=== PATIENT | female | born 1985 | race African-American/Black ===

== ENCOUNTER 2017-01-26 09:46 | Inpatient (IN) | payer BC ==
--- NOTE | ~2017-01-26 | DS ---
Discharge Summary [place] [id number] [facility] [place] [place]. [address] NAME: WENDY FIGUEREDO : [birth year] STATUS : ADM IN [facility]#: [id number] AGE: 32 ADM/REG DATE : 01/26/17 MR#: [id number] REPORT SERV DATE: 01/27/17 DICTATED BY: Radha GUTIERREZ DATE: 01/27/17 REPORT STATUS : Draft TRANSCRIBED BY: MODL DATE: 01/27/17 ADMISSION DATE: 01/26/2017 DISCHARGE DATE: 01/27/2017 DIAGNOSES AT DISCHARGE: Hyperthyroidism, cocaine use. CONSULTS: None. PROCEDURES: None. BRIEF SUMMARY: A 32-year-old female patient was admitted with anxiety, sweating, and tachycardia with hyperthyroid, laboratory concerning for underlying hyperthyroid state, started on a combination of Tapazole and propranolol, and observed overnight. The patient was hemodynamically stable with a resting heart rate in the 90s. The patient also admits to being on daily cocaine for roughly the last three to four weeks. The patient has been stringently counseled regarding the potential fatal use of cocaine particularly while hyperthyroid. The patient is felt stable to discharge home on a combination of Tapazole and propranolol. She will follow up with trial judge Dr. Gaye Krause, in approximately one to two weeks. DICTATED BY: Radha Gutierrez M.D. [facility] Radha Gutierrez M.D. / [id number] CC: Clara Shore M.D.
--- NOTE | ~2017-01-26 | HP ---
History And Physical [place] [id number] [facility] [place]. [address] NAME: WENDY FIGUEREDO : [birth year] STATUS : ADM IN [facility]#: [id number] AGE: 32 ADM/REG DATE : 01/26/17 MR#: [id number] REPORT SERV DATE: 01/26/17 DICTATED BY: FILOMENA FROST DATE: 01/26/17 REPORT STATUS : Draft TRANSCRIBED BY: MODL DATE: 01/26/17 DATE OF ADMISSION: 01/26/2017 CHIEF COMPLAINT: Sweating, palpitation, anxiety, and not feeling well intermittently for couple of weeks, but getting progressively worse for a few days. HISTORY OF PRESENT ILLNESS: This is a very pleasant 32-year-old female who has had no significant past medical history except for hypertension and chronic back pain, who has been presenting today to [facility] Emergency Room with complaints that started mostly, she said, couple of weeks ago with intermittent palpitation some weakness, some agitation, anxiety, and not feeling generalized well. For three to four days, however, she feels this palpitation. She feels that her pressure may be up. She has feeling of sweats, but intermittent nausea. She has not had though experienced any fevers or any vomiting, and as a result today, her heart rate got so control, and she had intermittent panic attacks, so as a result, she came to [facility] emergency room. She has been evaluated in the ER. She has been found in sinus tach with a heart rate on arrival was about 140-150 sinus tach, and she has been given some propranolol, her heart rate improved some, but some thyroid function test has been performed in the emergency room. Her TSH was less than 0.005, her free T4 was 433 and obviously T3 uptake was 47. The patient did not have any chest pain or shortness of breath. Again, she denies any fever, vomiting, some nausea, but obviously palpitation, anxiety, and sweats. No abdominal pain. No PND or orthopnea. No hematemesis. No melena. No hematochezia. She has not had any increased urinary frequency or urgency. No other complaints. The patient has been evaluated in the emergency room and after initial evaluation, Hospitalist Service has been contacted for admission, further evaluation, and treatment. PAST MEDICAL HISTORY: Significant for chronic back pain and hypertension. PAST SURGICAL HISTORY: None. SOCIAL HISTORY: She is a smoker, 5-8 cigarettes a day for 20 years. She says she does not smoke. She does not take IV drugs. She used marijuana intermittently. FAMILY HISTORY: Interestingly, significant for thyroid disorder. She does not know, she thinks her sister has "high thyroid." Very important, the patient has not been on any Synthroid nor she has had any history of thyroid disease. REVIEW OF SYSTEMS: A 14-point review of systems has been obtained and pertinent positive has been listed into the history of present illness, otherwise, negative except those underlying above. PHYSICAL EXAMINATION: VITAL SIGNS: The patient is afebrile. Blood pressure is 118/69, heart rate currently after receiving the labetalol 108-110 sinus tach, respiratory rate was 16, saturating 99% on room air. GENERAL: Very pleasant, somewhat anxious lady in no acute distress. She is alert and History And Physical [address] [address] NAME: WENDY FIGUEREDO : [birth year] STATUS : ADM IN [facility]#: [id number] AGE: 32 ADM/REG DATE : 01/26/17 MR#: [id number] REPORT SERV DATE: 01/26/17 DICTATED BY: FILOMENA FROST DATE: 01/26/17 REPORT STATUS : Draft TRANSCRIBED BY: AVERY DATE: 01/26/17 oriented x3. She follows all her commands appropriately. HEENT: Pupils equal, round, reactive to light. Extraocular movements intact. NECK: No JVD. No lymphadenopathy. I do not appreciate any goiter on palpation. CARDIOVASCULAR: She has regular rate and tachycardic. S1, S2 positive. No S3, no S4. No murmurs, rubs, or gallops appreciated. ABDOMEN: Soft with positive bowel sounds. Nontender. No guarding. No rebound. EXTREMITIES: No clubbing, cyanosis, or edema. NEUROLOGIC: She is alert and oriented x3. She is nonfocal. She follows all commands appropriately. LABORATORY DATA: Labs from today include sodium 143, potassium 3.8, chloride 109, CO2 of 24, BUN 11, creatinine 0.55, glucose is 79, magnesium is 1.8. Her troponin is less than 0.02. T3 uptake 47, TSH less than 0.005, and free T4 is 433. Her serum test has been negative and her white count is 8.5, hemoglobin 13.5, hematocrit 39.6, platelets 290. INR is 1.1. Her chest x-ray, portable, performed in the emergency room showed no acute cardiopulmonary abnormalities that could be appreciated and EKG shows sinus tachycardia. ASSESSMENT AND PLAN: This is a very pleasant 32-year-old female with. 1. Hyperthyroidism, newly diagnosed. 2. Hypertension. 3. Mild anxiety, secondary to above. I am going to put patient in MICU, start her on propranolol three times a day as blood pressure might tolerate, propranolol will help the patient's symptoms. I am going to start her on Tapazole 10 mg p.o. b.i.d. for three days and 10 mg p.o. daily; also super saturating potassium iodide, 5 drops three times a day probably about one week or so. I am going to check thyroid stimulating immunoglobulin and though I do not feel any goiter, I am going to go ahead and check stat thyroid ultrasound since the patient might have thyroiditis due to description of a long symptoms. We also check a serum drug level and urine drug screen and check a UA and urine culture. Provide vigorous IV hydration. She receive a dose of steroids in the emergency room, we will hold steroids currently and see how she responds with propranolol and Tapazole and provide supportive treatment as well. We will check liver function test as well and provide GI and DVT prophylaxis. The patient would need an outpatient followup with an lens grinder and polisher in few weeks. I have discussed personally with Dr. Gaye Krause, Endocrinology, she would be happy to follow the patient as an outpatient. That has been discussed extensively with the patient as well, all the questions have been answered in full. Further workup and recommendation pending above. It is worthwhile to note that the patient is going to be followed by Hospitalist Service. CF/MODL Filomena Frost M.D. History And Physical [address] [address] NAME: WENDY FIGUEREDO : 81 STATUS : ADM IN PAT#: [id number] AGE: 32 ADM/REG DATE : 01/26/17 MR#: [id number] REPORT SERV DATE: 01/26/17 DICTATED BY: FILOMENA FROST DATE: 01/26/17 REPORT STATUS : Draft TRANSCRIBED BY: AVERY DATE: 01/26/17 / [id number] CC: Clara Shore M.D.
[2017-01-26 09:24] LABS: BASOPHILS 0.2 %; BASOPHILS ABSOLUTE 0.02 10/3/uL (0.0-0.16); EOSINOPHILS 0.5 %; EOSINOPHILS ABSOLUTE 0.04 10/3/uL (0.0-0.53); ER CBC TAT 0 Hrs 05 Mins; HEMATOCRIT 39.6 % (36.0-48.0); HEMOGLOBIN 13.5 g/dL (12.0-16.0); IMMATURE GRANULOCYTES 0.1 %; IMMATURE GRANULOCYTES ABSOLUTE 0.01 10/3/uL (0.0-0.11); LYMPHOCYTES 23.3 %; LYMPHOCYTES ABSOLUTE 1.98 10/3/uL (0.67-4.30); MEAN CORPUS HGB CONC 34.1 g/dL (32.0-36.0); MEAN CORPUSCULAR HEMOGLOB 33.4 pg (26.0-34.0); MONOCYTES 7.1 %; NEUTROPHILS 68.8 %; NEUTROPHILS ABSOLUTE 5.86 10/3/uL (2.02-8.40); PLATELET COUNT 290 10/3/uL (150-400); RBC DISTRIBUTION WIDTH 12.2 % (12.0-16.0); RED CELL COUNT 4.04 10/6/uL (4.0-5.6); WHITE BLOOD CELLS 8.5 10/3/uL (4.5-10.5)
[2017-01-26 09:26] LABS: MANUAL DIFF NO %
[2017-01-26 09:31] LABS: INTERNATIONAL NORMAL RATI 1.1 UNITS (-); PARTIAL THROMBO TIME 26.5 SEC (22.5-37.2); PROTIME (NOT ORD) 13.7 SEC (12.0-14.5)
[2017-01-26 09:41] LABS: BUN (BLOOD UREA NITROGEN) 11 MG/DL (6-23); CALCIUM, SERUM 9.8 MG/DL (8.5-10.4); CHEST PAIN PROFILE TAT 0 Hrs 22 Mins; CHLORIDE, SERUM 109 MMOL/L (96-112); CO2 (CARBON DIOXIDE) 24 MMOL/L (24-34); CREATININE 0.55 MG/DL (0.55-1.02); GFR AFRICAN AMERICAN 142 ML/MIN (>=60); GFR NON AFRICAN AMERICAN 122 ML/MIN (>=60); POTASSIUM, SERUM 3.8 MMOL/L (3.5-5.3); SODIUM, SERUM 143 MMOL/L (135-148); TROPONIN I 0.02 NG/ML (<0.05)
[2017-01-26 09:45] LABS: GLUCOSE, SERUM 79 MG/DL (60-99)
[2017-01-26 10:34] LABS: ULTRASENSITIVE TSH < 0.005 MCIU/ML (0.358-3.740)
[2017-01-26 11:14] LABS: FREE T4 4.33 NG/DL (0.76-1.46); T3 UPTAKE 47 % (30-45)
[2017-01-26] MEDS ORDERED: PRIN10 PO (11:59)
[2017-01-26] MEDS ORDERED: ADVIL PO (12:00)
[2017-01-26] MEDS ORDERED: ACET500CAP PO (12:00)
[2017-01-26] MEDS ORDERED: BEN25 PO (12:01)
[2017-01-26] MEDS ORDERED: MEDROXYPROGESTERONE IM (12:02)
[2017-01-26 14:25] LABS: AMPHETAMINES (NOT ORD) NEG (NEG); BARBITURATES (NOT ORDERED NEG (NEG); BENZODIAZEPINES (NOT ORD) NEG (NEG); CANNABINOIDS (THC) POS (NEG); COCAINE (NOT ORDERED) POS (NEG); OPIATES NEG (NEG); PHENCYCLIDINE(PCP) NEG (NEG)
[2017-01-26 14:26] LABS: TRICYCLICS NEG (NEG)
[2017-01-26 15:32] LABS: INTERNATIONAL NORMAL RATI 1.1 UNITS (-); PARTIAL THROMBO TIME 26.6 SEC (22.5-37.2); PROTIME (NOT ORD) 14.3 SEC (12.0-14.5)
[2017-01-26 15:49] LABS: ASCORBIC ACID (UR NOT ORDER) NEG (NEG); BILIRUBIN, URINE NEGATIVE (NEG); KETONE, URINE 20 MG/DL (NEG); LEUKOCYTE ESTERASE(NOT OR NEG (NEG); WBC (NOT ORDERED) (RFLEX) 1 (0-5)
[2017-01-26 16:10] LABS: ACETAMINOPHEN LEVEL (TYLENOL) < 2.0 MCG/ML (10.0-20.0); ALCOHOL < 10 MG/DL (0); ALKALINE PHOSPHATASE 57 U/L (45-117); DIRECT BILIRUBIN 0.1 MG/DL (0.0-0.4); FOLATE 21.3 NG/ML (>5.2); FREE T4 3.39 NG/DL (0.76-1.46); INDIRECT BILIRUBIN(NOT ORDER) 0.4 MG/DL (0.1-0.9); PHOSPHORUS, SERUM 2.9 MG/DL (2.5-4.5); SALICYLATE 2.4 MG/DL (-); SGOT(AST) 28 U/L (5-40); SGPT(ALT) 38 U/L (5-65); TOTAL BILIRUBIN 0.5 MG/DL (0-1.2); TOTAL PROTEIN 6.2 G/DL (6.0-8.5); TROPONIN I 0.03 NG/ML (<0.05); ULTRASENSITIVE TSH < 0.005 MCIU/ML (0.358-3.740)
[2017-01-27 04:30] LABS: BASOPHILS 0.1 %; BASOPHILS ABSOLUTE 0.01 10/3/uL (0.0-0.16); EOSINOPHILS 0 %; HEMOGLOBIN 10.9 g/dL (12.0-16.0); IMMATURE GRANULOCYTES 0.3 %; IMMATURE GRANULOCYTES ABSOLUTE 0.04 10/3/uL (0.0-0.11); LYMPHOCYTES 11.8 %; LYMPHOCYTES ABSOLUTE 1.86 10/3/uL (0.67-4.30); MANUAL DIFF NO %; MEAN CORPUS HGB CONC 34.1 g/dL (32.0-36.0); MEAN CORPUSCULAR HEMOGLOB 33.6 pg (26.0-34.0); MEAN CORPUSCULAR VOLUME 98.8 fL (80-100); MEAN PLATELET VOLUME 9.1 fL (9.2-13.0); MONOCYTES 8.1 %; MONOCYTES ABSOLUTE 1.28 10/3/uL (0.21-1.20); NEUTROPHILS 79.7 %; NEUTROPHILS ABSOLUTE 12.54 10/3/uL (2.02-8.40); PLATELET COUNT 275 10/3/uL (150-400); RBC DISTRIBUTION WIDTH 12.3 % (12.0-16.0); RED CELL COUNT 3.24 10/6/uL (4.0-5.6); WHITE BLOOD CELLS 15.7 10/3/uL (4.5-10.5)
[2017-01-27 04:39] LABS: ALBUMIN 3.1 G/DL (3.5-5.0); ALKALINE PHOSPHATASE 58 U/L (45-117); BUN (BLOOD UREA NITROGEN) 10 MG/DL (6-23); CALCIUM, SERUM 9.3 MG/DL (8.5-10.4); CHLORIDE, SERUM 114 MMOL/L (96-112); CO2 (CARBON DIOXIDE) 21 MMOL/L (24-34); CREATININE 0.43 MG/DL (0.55-1.02); GFR AFRICAN AMERICAN 154 ML/MIN (>=60); GFR NON AFRICAN AMERICAN 133 ML/MIN (>=60); GLUCOSE, SERUM 133 MG/DL (60-99); POTASSIUM, SERUM 3.8 MMOL/L (3.5-5.3); SGOT(AST) 19 U/L (5-40); SGPT(ALT) 37 U/L (5-65); SODIUM, SERUM 144 MMOL/L (135-148); TOTAL BILIRUBIN 0.4 MG/DL (0-1.2); TOTAL PROTEIN 6.1 G/DL (6.0-8.5)
[2017-01-27] MEDS ORDERED: TAPAZOLE10 MG PO (09:56)
[2017-01-27] MEDS ORDERED: I20 PO (09:58)
== END 2017-01-27 10:45 | disposition home or self-care (01) | DRG 645 ==
LOC: ER 09:46 → IMCU 12:13
PROVIDERS: Hospitalist; Internal Medicine
DX: E05.90 Thyrotoxicosis, unspecified without thyrotoxic crisis or storm (principal); I10 Essential (primary) hypertension; F41.9 Anxiety disorder, unspecified; F14.10 Cocaine abuse, uncomplicated
CPT/HCPCS: 71010; 76536; 80048; 80053; 80076; 80305; 80307; 81001; 82607; 82746; 83036; 83615; 83735; 84100; 84439; 84443; 84445; 84479; 84484; 84703; 85025; 85610; 85730; 87641; 96374; 96375; 99291; A9270-GY; J1720; J2930